=== PATIENT | female | born 1995 | race Hispanic/Latino ===

== ENCOUNTER 2018-03-10 09:48 | Emergency (ER) | payer SELFPAY ==
[~2018-03-10] VITALS: Ht 162.6 cm; Wt 78.9 kg
[~2018-03-10 09:48] MED LIST: ANUSOL-HC25 MG RC; BENEFIBER240 GM; PANTOPRAZOLE SO40 MG PO
[2018-03-10] MEDS ORDERED: KETOROLAC TROMETHAMINE 60 MG/2 ML VIAL IM ONE (10:00)
[2018-03-10 10:41] LABS: BILIRUBIN,URINE NEGATIVE (NEGATIVE); CLARITY,URINE CLEAR (CLEAR); COLOR,URINE AMBER (YELLOW); KETONES,URINE NEGATIVE (NEGATIVE); LEUKOCYTE ESTERASE ,URINE NEGATIVE (NEGATIVE); NITRITE,URINE NEGATIVE (NEGATIVE); PREGNANCY TEST, URINE NEGATIVE (NEGATIVE); PROTEIN,URINE DIPSTICK NEGATIVE (NEGATIVE); URINE UROBILINOGEN 0.2 mg/dL (0.2 - 1)
[2018-03-10 10:57] LABS: BACTERIA,URINE MODERATE /HPF; EPITHELIAL CELLS,URINE MODERATE /LPF
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
--- NOTE | 2018-03-10 12:24 | Diagnostic Imaging Report ---
EXAMINATION: ABDOMEN 2 VIEW COMPARISON: None FINDINGS: There is a nonobstructive bowel gas pattern. Abundant amount of stool in the colon. There is no free intraperitoneal air. Bowel gas partially obscures visualization of the kidneys, but no definite urinary stone is visualized. The bony structures are unremarkable. IMPRESSION: No acute radiographic abnormality. Signed by: Dr. Jaron Carey MD on 03/10/2018 12:21 PM
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
[2018-03-10] MEDS ORDERED: KETOROLAC TROME10 MG PO (12:41)
[2018-03-10] MEDS ORDERED: CYCLOBENZAPRINE5 MG PO (12:41)
[2018-03-10 13:04] VITALS: BP 114/78
== END 2018-03-10 12:59 | disposition home or self-care (01) ==
LOC: ER 09:54
DX: M54.2 Cervicalgia (principal); S16.1XXA Strain of muscle, fascia and tendon at neck level, initial encounter; S80.02XA Contusion of left knee, initial encounter; S30.1XXA Contusion of abdominal wall, initial encounter; V43.52XA Car driver injured in collision with other type car in traffic accident, initial encounter; Y92.488 Other paved roadways as the place of occurrence of the external cause
CPT/HCPCS: 72050; 73560; 74019; 81001; 81025; 99283; J1885